=== PATIENT | male | born 1980 | race Caucasian/White ===

== ENCOUNTER 2019-08-19 22:40 | Inpatient (IN) | payer OTHER ==
[~2019-08-19] VITALS: Ht 172.7 cm; Wt 72.6 kg
[~2019-08-19 22:40] MED LIST: ASCO500T20 PO; CLIN300C11 MT; FAMO20TA8 PO; FOLI0.4T2 MT; FOLI100T PO; THIA50TA11 MT; ZINC220C2 PO
[2019-08-20] MEDS ORDERED: SODIUM CHLORIDE 0.9% 1,000 ML IV ONE ×2 (00:53→07:39)
[2019-08-20] MEDS ORDERED: ONDANSETRON HCL 4MG/2ML INJ IV STA (00:53)
[2019-08-20 01:14] LABS: BG BASE EXCESS -2.5 mmol/L (-2.0-2.0); BG CARBOXYHEMOGLOBIN 0.6 % (0.5-1.5); BG DEOXYHEMOGLOBIN 4.3 % (0.0-5.0); BG FRACTION INSPIRED OXYGEN 21; BG HCO3 ACT 23.3 mmol/L (22.0-26.0); BG METHEMOGLOBIN 0.3 % (0.0-1.5); BG OXYGEN SATURATION 95.7 % (92.0-98.5); BG OXYHEMOGLOBIN 94.8 % (94.0-97.0); BG PCO2 43.8 mmHg (35.0-45.0); BG PH 7.343 (7.350-7.450); BG PO2 93.5 mmHg (75.0-100.0); BG SAMPLE SITE RIGHT RADIAL; BG TOTAL HEMOGLOBIN 13.6 g/dL (12.0-18.0); BG VENT MODE ROOM AIR
[2019-08-20 01:52] LABS: BASOPHILS % 1.3 % (0.0-2.0); EOSINOPHILS % 0.7 % (0.0-5.0); HEMATOCRIT. 41.8 % (42.0-52.0); HEMOGLOBIN. 14.2 g/dL (14.0-18.0); LYMPHOCYTES % 36.6 % (20.0-50.0); MEAN CORPUSCULAR HEMOGLOBIN 31.5 pg (28.0-32.0); MEAN CORPUSCULAR VOLUME 92.9 fL (80.0-94.0); MEAN PLATELET VOLUME 6.9 fl (7.4-10.4); MONOCYTES % 10.7 % (2.0-8.0); NEUTROPHILS % 50.7 % (40.0-76.0); PLATELET 162 x1000/uL (130-400); RED CELL DISTRIBUTION WIDTH 16.7 % (11.6-14.6)
[2019-08-20 01:55] LABS: CHLORIDE 101 mEq/L (98-107)
[2019-08-20] MEDS ORDERED: ONDANSETRON HCL 4MG TABLET PO SCH (02:00)
[2019-08-20 02:23] LABS: ETHANOL BLOOD 398 mg/dL
[2019-08-20 04:04] LABS: CLARITY URINE CLEAR (CLEAR); COLOR URINE YELLOW (YELLOW); KETONES URINE 1+ (NEGATIVE); LEUKOCYTE ESTERASE URINE NEGATIVE (NEGATIVE); NITRITE URINE NEGATIVE (NEGATIVE); OCCULT BLOOD URINE NEGATIVE (NEGATIVE); PROTEIN URINE 2+ (NEGATIVE); SPECIFIC GRAVITY URINE 1.017 (1.005-1.030)
[2019-08-20 04:07] LABS: *AMPHETAMINES SCREEN URINE NEGATIVE (NEGATIVE); *BARBITURATES SCREEN URINE NEGATIVE (NEGATIVE); *BENZODIAZEPINES SCREEN URINE PRESUMTIVE POSITIVE (NEGATIVE); *COCAINE SCREEN URINE NEGATIVE (NEGATIVE); METHADONE URINE SCREEN NEGATIVE (NEGATIVE); OPIATES URINE SCREEN NEGATIVE (NEGATIVE)
[2019-08-20 04:08] LABS: CANNABINOID URINE SCREEN NEGATIVE (NEGATIVE); PHENCYCLIDINE URINE SCREEN NEGATIVE (NEGATIVE)
[2019-08-20] MEDS ORDERED: LORAZEPAM 2MG/ML CPJ IV ONE (07:45)
[2019-08-20] MEDS: SODIUM CHLORIDE 0.9% 1,000 ML IV SCH ×2 (11:18→22:06)
[2019-08-20] MEDS ORDERED: CLONIDINE 0.1MG TABLET PO PRN (11:30)
[2019-08-20] MEDS ORDERED: DIPHENHYDRAMINE 50MG/ML VIAL IV PRN (11:30)
[2019-08-20] MEDS ORDERED: MAGNESIUM/ALUMINUM HYDROXIDE/SIMETHICONE 30ML UDC PO PRN (11:30)
[2019-08-20 12:00] VITALS: BP 124/90
[2019-08-20 12:01] VITALS: BP 124/90
[2019-08-20] MEDS: LORAZEPAM 2MG/ML CPJ IV PRN ×3 (12:31→22:06)
[2019-08-20] MEDS: CHLORDIAZEPOXIDE 25MG CAPSULE PO SCH ×2 (13:38→22:06)
[2019-08-20] MEDS ORDERED: MVI, ADULT NO.1 10 ML, FOLIC ACID 1 MG, THIAMINE HCL 100 MG in SODIUM CHLORIDE 0.9% 1,0... IV SCH ×4 (14:00)
[2019-08-20 16:00] VITALS: BP 133/97
[2019-08-20 20:00] VITALS: BP 140/94
[2019-08-20] MEDS ORDERED: ZOLPIDEM TARTRATE 5MG TABLET PO PRN (21:00)
[2019-08-21] VITALS: BP 136/88
[2019-08-21 04:00] VITALS: BP 133/92
[2019-08-21] MEDS: LORAZEPAM 2MG/ML CPJ IV PRN ×5 (04:08→23:58)
[2019-08-21] MEDS: ONDANSETRON HCL 4MG/2ML INJ IV PRN (04:08)
[2019-08-21] MEDS: CHLORDIAZEPOXIDE 25MG CAPSULE PO SCH ×3 (05:49→22:42)
[2019-08-21 06:56] LABS: CHLORIDE 99 mEq/L (98-107)
[2019-08-21 07:02] LABS: PHOSPHORUS 2.7 mg/dL (2.5-4.9)
[2019-08-21 07:25] LABS: HEMATOCRIT. 32.7 % (42.0-52.0); HEMOGLOBIN. 11.6 g/dL (14.0-18.0); LYMPHOCYTES % 11.2 % (20.0-50.0); MEAN CORPUSCULAR HEMOGLOBIN 32.3 pg (28.0-32.0); MEAN CORPUSCULAR VOLUME 90.9 fL (80.0-94.0); MEAN PLATELET VOLUME 8.1 fl (7.4-10.4); MONOCYTES % 5.6 % (2.0-8.0); NEUTROPHILS % 80.2 % (40.0-76.0); PLATELET 88 x1000/uL (130-400); RED CELL DISTRIBUTION WIDTH 16.4 % (11.6-14.6)
[2019-08-21 08:00] VITALS: BP 127/88
[2019-08-21] MEDS: ACETAMINOPHEN 325MG TABLET PO PRN (10:15)
[2019-08-21] MEDS ORDERED: MAGNESIUM 2 G PREMIX 50 ML IV NR (11:00)
[2019-08-21 12:00] VITALS: BP 114/79
[2019-08-21] MEDS: SODIUM CHLORIDE 0.9% 1,000 ML IV SCH (13:58)
[2019-08-21 16:00] VITALS: BP 118/78
[2019-08-21] MEDS ORDERED: ACETAMINOPHEN 650MG/20.3ML UDC PO PRN (17:00)
[2019-08-21 20:00] VITALS: BP 109/75
[2019-08-21] MEDS: LEVOFLOXACIN 500MG PREMIX 100 ML IV SCH (22:40)
[2019-08-22] VITALS: BP 130/96
[2019-08-22 02:01] LABS: CLARITY URINE CLEAR (CLEAR); COLOR URINE YELLOW (YELLOW); KETONES URINE 1+ (NEGATIVE); LEUKOCYTE ESTERASE URINE NEGATIVE (NEGATIVE); NITRITE URINE NEGATIVE (NEGATIVE); OCCULT BLOOD URINE NEGATIVE (NEGATIVE); PH URINE 8.5 (4.5-8.0); PROTEIN URINE NEGATIVE (NEGATIVE)
[2019-08-22 04:00] VITALS: BP 111/83
[2019-08-22] MEDS: SODIUM CHLORIDE 0.9% 1,000 ML IV SCH ×2 (04:42→16:14)
[2019-08-22] MEDS: ACETAMINOPHEN 650MG/20.3ML UDC PO PRN ×2 (04:43)
[2019-08-22] MEDS: CHLORDIAZEPOXIDE 25MG CAPSULE PO SCH ×3 (05:39→21:11)
[2019-08-22 08:00] VITALS: BP 124/93
[2019-08-22 08:03] LABS: CHLORIDE 99 mEq/L (98-107)
[2019-08-22] MEDS: LORAZEPAM 2MG/ML CPJ IV PRN ×2 (09:32→23:25)
[2019-08-22 12:00] VITALS: BP 142/94
[2019-08-22] MEDS: ACETAMINOPHEN 325MG TABLET PO PRN (13:28)
[2019-08-22] MEDS: ONDANSETRON HCL 4MG/2ML INJ IV PRN (13:58)
[2019-08-22 16:00] VITALS: BP 114/70
[2019-08-22 20:00] VITALS: BP 127/95
[2019-08-22] MEDS: LEVOFLOXACIN 500MG PREMIX 100 ML IV SCH (21:12)
[2019-08-23] VITALS: BP 119/88
[2019-08-23] MEDS: ACETAMINOPHEN 325MG TABLET PO PRN ×2 (00:48→09:40)
[2019-08-23 04:00] VITALS: BP 110/71
[2019-08-23] MEDS: CHLORDIAZEPOXIDE 25MG CAPSULE PO SCH ×3 (05:14→22:29)
[2019-08-23] MEDS: SODIUM CHLORIDE 0.9% 1,000 ML IV SCH ×2 (05:15→21:00)
[2019-08-23 08:01] VITALS: BP 110/80
[2019-08-23] MEDS: LORAZEPAM 2MG/ML CPJ IV PRN ×2 (09:40→21:00)
[2019-08-23 12:00] VITALS: BP 107/74
[2019-08-23 16:06] VITALS: BP 98/66
[2019-08-23 20:00] VITALS: BP 106/75
[2019-08-23] MEDS: LEVOFLOXACIN 500MG PREMIX 100 ML IV SCH (22:29)
[2019-08-24 00:40] VITALS: BP 115/74
[2019-08-24] MEDS: ACETAMINOPHEN 325MG TABLET PO PRN ×2 (01:18→12:28)
[2019-08-24 04:00] VITALS: BP 107/76
[2019-08-24] MEDS: LORAZEPAM 2MG/ML CPJ IV PRN ×3 (04:16→20:30)
[2019-08-24] MEDS: ACETAMINOPHEN 650MG/20.3ML UDC PO PRN (04:17)
[2019-08-24] MEDS: CHLORDIAZEPOXIDE 25MG CAPSULE PO SCH ×2 (05:30→13:37)
[2019-08-24 08:00] VITALS: BP 107/64
[2019-08-24 12:00] VITALS: BP 112/72
[2019-08-24] MEDS: SODIUM CHLORIDE 0.9% 1,000 ML IV SCH (13:37)
[2019-08-24 16:00] VITALS: BP 123/86
[2019-08-24 20:00] VITALS: BP 108/72
[2019-08-24] MEDS: LEVOFLOXACIN 500MG PREMIX 100 ML IV SCH (21:04)
[2019-08-25] VITALS: BP 127/85
[2019-08-25 07:28] LABS: CHLORIDE 105 mEq/L (98-107)
[2019-08-25 07:35] LABS: PHOSPHORUS 3.3 mg/dL (2.5-4.9)
[2019-08-25 07:46] LABS: EOSINOPHILS % 2.2 % (0.0-5.0); HEMATOCRIT. 36.9 % (42.0-52.0); HEMOGLOBIN. 12.7 g/dL (14.0-18.0); LYMPHOCYTES % 19.9 % (20.0-50.0); MEAN CORPUSCULAR HEMOGLOBIN 31.9 pg (28.0-32.0); MEAN CORPUSCULAR VOLUME 92.5 fL (80.0-94.0); MEAN PLATELET VOLUME 8.4 fl (7.4-10.4); NEUTROPHILS % 62.9 % (40.0-76.0); PLATELET 108 x1000/uL (130-400); RED BLOOD CELL COUNT 3.99 mill/uL (4.7-6.1); RED CELL DISTRIBUTION WIDTH 16.4 % (11.6-14.6)
[2019-08-25 08:00] VITALS: BP 113/80
[2019-08-25 11:39] VITALS: BP 101/70
[2019-08-25 12:03] VITALS: BP 107/70
== END 2019-08-25 11:55 | disposition home or self-care (01) | DRG 52 ==
LOC: ER 22:40 → 8WST 08-20 08:25 → EDBEDREQTM 08-20 08:26 → EDBEDREQ 08-20 08:26 → ENRESERV 08-20 08:53 → 8WST 08-20 12:12
PROVIDERS: ADMIT Internal Medicine; ATTEND Internal Medicine
DX: G92 Toxic encephalopathy (principal); F10.231 Alcohol dependence with withdrawal delirium; E83.42 Hypomagnesemia; F41.1 Generalized anxiety disorder; Y90.8 Blood alcohol level of 240 mg/100 ml or more; I10 Essential (primary) hypertension; F41.9 Anxiety disorder, unspecified; R50.9 Fever, unspecified; Z59.0 Homelessness
CPT/HCPCS: 36415; 36600; 71045; 80048; 80053; 80305; 80307; 80320; 80329; 81003; 82375; 82805; 83735; 84100; 84484; 85025; 93005; 99291; J1956; J2060; J2405; J3411; J3475; J3490; J7030; Q0162; G0480